=== PATIENT | female | born 1975 | race Caucasian/White ===

== ENCOUNTER 2017-10-21 14:49 | Emergency (ER) | payer MEDICAID, OTHER ==
[~2017-10-21] VITALS: Ht 167.6 cm; Wt 93.0 kg
[2017-10-21 14:55] VITALS: BP 126/80
== END 2017-10-21 16:18 | disposition left against medical advice (07) ==
LOC: ER 14:49
DX: R58 Hemorrhage, not elsewhere classified (principal); Z53.21 Procedure and treatment not carried out due to patient leaving prior to being seen by health care provider